=== PATIENT | male | born 1960 | race Native Hawaiian/Other Pacific Islander ===

== ENCOUNTER 2017-03-11 09:18 | Emergency (ER) | payer OTHER ==
[2017-03-11 09:27] VITALS: BP 136/90; PULSE 64; RESP 16; TEMP 98.6; O2SAT 97
--- NOTE | 2017-03-11 09:37 | EDPHY ---
H & P Stated Complaint: R foot pain after spider bite 03/08/17. Reports spider is black with red leg Time Seen by Provider: 03/11/17 09:25 HPI/ROS: CHIEF COMPLAINT: Spider bite HISTORY OF PRESENT ILLNESS: The patient is a 56-year-old man who comes to the emergency department stating that he was bitten by a black spider 3 days ago. He saw the spider on his foot and brushed away. He states that it was black and had a red belly. He has not had any fevers. He has minor itching and pain at the site on his foot. No fluctuance. No body aches. No nausea vomiting or diarrhea. No fevers. He states that he did have some sweating initially but it resolved quickly. he states that he is feeling better today. REVIEW OF SYSTEMS: Constitutional: denies: chills, fever, recent illness, recent injury EENTM: denies: blurred vision, double vision, nose congestion Respiratory: denies: cough, shortness of breath Cardiac: denies: chest pain, irregular heart rate, lightheadedness, palpitations Gastrointestinal/Abdominal: denies: abdominal pain, diarrhea, nausea, vomiting, blood streaked stools Genitourinary: denies: dysuria, frequency, hematuria, pain Musculoskeletal: denies: joint pain, muscle pain Skin: See HPI Neurological: denies: headache, numbness, paresthesia, tingling, dizziness, weakness Hematologic/Lymphatic: denies: blood clots, easy bleeding, easy bruising Immunologic/allergic: denies: HIV/AIDS, transplant EXAM: GENERAL: Well-appearing, well-nourished and in no acute distress. HEAD: Atraumatic, normocephalic. EYES: Pupils equal round and reactive to light, extraocular movements intact, sclera anicteric, conjunctiva are normal. ENT: TMs normal, nares patent, oropharynx clear without exudates. Moist mucous membranes. NECK: Normal range of motion, supple without lymphadenopathy or JVD. LUNGS: Breath sounds clear to auscultation bilaterally and equal. No wheezes rales or rhonchi. HEART: Regular rate and rhythm without murmurs, rubs or gallops. ABDOMEN: Soft, nontender, normoactive bowel sounds. No guarding, no rebound. No masses appreciated. BACK: No CVA tenderness, no spinal tenderness, step-offs or deformities EXTREMITIES: Normal range of motion, no pitting or edema. No clubbing or cyanosis. NEUROLOGICAL: Cranial nerves II through XII grossly intact. Normal speech, normal gait. 5/5 strength, normal movement in all extremities, normal sensation PSYCH: Normal mood, normal affect. SKIN: Small abrasion versus bite to right dorsal foot. No swelling or erythema. No fluctuance or drainage. Source: Patient Exam Limitations: No limitations - Personal History Current Tetanus Diphtheria and Acellular Pertussis (TDAP): Yes Tetanus Vaccine Date: within 10 years - Medical/Surgical History Hx Asthma: No Hx Chronic Respiratory Disease: No Hx Diabetes: No Hx Cardiac Disease: No Hx Renal Disease: No Hx Cirrhosis: No Hx Alcoholism: No Hx HIV/AIDS: No Hx Splenectomy or Spleen Trauma: No Other PMH: Denies - Family History Significant Family History: No pertinent family hx - Social History Smoking Status: Former smoker Alcohol Use: Sober Drug Use: None Constitutional: Initial Vital Signs Temperature (C) 37 C 03/11/17 09:20 Heart Rate 64 03/11/17 09:20 Respiratory Rate 16 03/11/17 09:20 Blood Pressure 136/90 H 03/11/17 09:20 O2 Sat (%) 97 03/11/17 09:20 O2 Delivery Mode Room Air Allergies/Adverse Reactions: No Known Allergies Allergy (Verified 03/11/17 09:27) Home Medications: Medication Instructions Recorded NK [No Known Home Meds] 03/11/17 Medical Decision Making ED Course/Re-evaluation: The patient witnessed a black on his foot. He may have been bitten although it looks more consistent with abrasion. He did not have any GI symptoms. We discussed continued treatment. He is overall very well-appearing and states that he is improving. We discussed anti-inflammatories for pain and itching. He is happy with this plan and declines further workup or testing. Will also refer him to a primary care physician. Differential Diagnosis: Partial list of the Differential diagnosis considered include but were not limited to; insect bite, sting, abrasion and although unlikely based on the history and physical exam, I also considered laceration, abscess, infection, cellulitis. I discussed these differential diagnoses and the plan with the patient as well as the usual and expected course. The patient understands that the diagnosis is provisional and that in medicine we are not always correct and that further workup is often warranted. Usual and customary warnings were given. All of the patient's questions were answered. The patient was instructed to return to the emergency department should the symptoms at all worsen or return, otherwise to followup with the physician as we discussed. Departure - Departure Disposition: Home, Routine, Self-Care Clinical Impression: Spider bite Qualifiers: Encounter type: initial encounter Injury intent: accidental or unintentional Qualified Code(s): T63.301A - Toxic effect of unspecified spider venom, accidental (unintentional), initial encounter Condition: Fair Instructions: Black Spider Bite (ED) Referrals: NONE *PRIMARY CARE P,. [Primary Care Provider] - As per Instructions Vivien Burton MD [Medical Doctor] - As per Instructions
== END 2017-03-11 09:41 | disposition home or self-care (01) ==
LOC: CED 09:18
DX: T63.301A Toxic effect of unspecified spider venom, accidental (unintentional), initial encounter (principal); Z87.891 Personal history of nicotine dependence

== ENCOUNTER 2017-05-02 15:05 | Emergency (ER) | payer OTHER ==
[2017-05-02 15:18] VITALS: BP 133/84; PULSE 64; RESP 16; TEMP 97.9; O2SAT 96
[2017-05-02] MEDS ORDERED: LET GEL TOPICAL 1 EA SYR TP ONE (15:31)
[2017-05-02] MEDS ORDERED: TDAP ADULT 0.5 ML INJ (BOOSTRIX) IM ONE (15:33)
--- NOTE | 2017-05-02 15:35 | EDPHY ---
H & P Time Seen by Provider: 05/02/17 15:18 HPI/ROS: This patient presents with dog bite to the left 4th finger. Injury occurred last night in his yd. The gait was open a small dog from the neighborhood read in and when it was being kicked out by the patient it bit him in the hand with injury to the distal phalanx of the left 4th finger. Today he notices some redness and mild pain to the area that concerns him for infection and came in for evaluation. There is a small laceration caused by the incident to the distal phalanx. Patient came in by private vehicle. Neuro: No numbness or tingling Musculoskeletal: No bony pain. Integumentary: No other skin injuries besides the finger 5 point ROS is otherwise negative Past Medical/Surgical History: Otherwise healthy He he is due for tetanus Smoking Status: Former smoker Physical Exam: Physical Exam Vital signs are normal. General: No acute distress Cardiac: Brisk capillary refill is intact throughout. Skin: No rash or pallor. Extremities: Atraumatic normal except for left 4th finger Left 4th finger: Patient has erythema and swelling to the distal phalanx with a 8 mm laceration open by a mm two-no foreign bodies and direct examination, no active bleeding. No significant bony tenderness the distal phalanx. There is mild erythema surrounding this and slight swelling. No fluctuance. No proximal tracking to the middle phalanx. Neuro: Alert with no sensorimotor deficits in the affected finger. Constitutional: Initial Vital Signs Temperature (C) 36.6 C 05/02/17 15:13 Heart Rate 64 05/02/17 15:13 Respiratory Rate 16 05/02/17 15:13 Blood Pressure 133/84 H 05/02/17 15:13 O2 Sat (%) 96 05/02/17 15:13 O2 Delivery Mode Room Air Allergies/Adverse Reactions: No Known Allergies Allergy (Verified 05/02/17 15:12) Home Medications: Medication Instructions Recorded Amox Tr/K Clav (Augmentin) 500 mg PO TID #30 tab 05/02/17 [Augmentin 500/125 MG TAB (*)] MDM/Departure - MDM Medications Given: Discontinued Medications Diphtheria/Tetanus/Acell Pertussis (Boostrix) 0.5 ml IM .ONCE ONE Stop: 05/02/17 15:34 Last Admin: 05/02/17 15:47 Dose: 0.5 ml Tetracaine/Epinephrine/Lidocaine (Let Gel Topical) 1 ea TP EDNOW ONE Stop: 05/02/17 15:32 Last Admin: 05/02/17 15:49 Dose: 1 ea ED Course/Re-evaluation: Let solution to the wound followed by cleaning by our tech. I counseled regarding dog bite. Patient's findings are consistent with minor wound infection from yesterday's dog bite with very small well-approximated laceration. No clinical evidence to suggest tendon injury, bony injury or other concerning findings. Will start him on Augmentin antibiotic for minor local wound infection He is neurovascular intact without evidence of bony injury or other complicating factors on exam. - Depart Disposition: Home, Routine, Self-Care Clinical Impression: Wound infection Dog bite of finger Qualifiers: Encounter type: initial encounter Qualified Code(s): S61.259A - Open bite of unspecified finger without damage to nail, initial encounter Condition: Good Instructions: Amoxicillin/Clavulanate Potassium (By mouth), Animal Bite (ED), Cellulitis (ED) Additional Instructions: Diagnoses: 1. Dog bite to 4th finger 2. Wound infection Plan: Soak the finger in warm soapy water 2 times a day until symptoms resolve Ibuprofen and/or Tylenol for pain as needed Augmentin antibiotic for 10 days Take a probiotic or yogurt while on this to prevent loose stools. Return for any significant worsening despite the treatment plan Prescriptions: Amox Tr/K Clav (Augmentin) [Augmentin 500/125 MG TAB (*)] 500 mg PO TID #30 tab Referrals: NONE *PRIMARY CARE P,. [Primary Care Provider] - As per Instructions
== END 2017-05-02 16:03 | disposition home or self-care (01) ==
LOC: CED 15:05
DX: S61.255A Open bite of left ring finger without damage to nail, initial encounter (principal); Z23 Encounter for immunization; Z87.891 Personal history of nicotine dependence; W54.0XXA Bitten by dog, initial encounter; Y92.007 Garden or yard of unspecified non-institutional (private) residence as the place of occurrence of the external cause